=== PATIENT | female | born 1990 | race Caucasian/White ===

== ENCOUNTER 2020-10-07 17:16 | Emergency (ER) | payer OTHER ==
[2020-10-07] MEDS ORDERED: Lidocaine/Epineph/Tetracaine 3 ML Syringe TOP ONE ×2 (17:43→18:09)
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
[2020-10-07] MEDS ORDERED: Bacitracin Oint 1 GM U/D Packet TOP ONE (19:02)
[2020-10-07] MEDS ORDERED: Bacitracin Oint 1 GM U/D Packet ONE (19:28)
--- NOTE | 2020-10-09 09:56 | CR ---
Tibia Fibula Rt CLINICAL HISTORY: Trauma FINDINGS: Two views show no evidence of fracture or bone destruction. No soft tissue abnormality is seen. Impression: No fracture
== END 2020-10-07 19:47 | disposition home or self-care (01) ==
LOC: JP.ED 17:16
DX: S80.811A Abrasion, right lower leg, initial encounter (principal); S50.311A Abrasion of right elbow, initial encounter; V86.99XA Unspecified occupant of other special all-terrain or other off-road motor vehicle injured in nontraffic accident, initial encounter
CPT/HCPCS: 73590; 99284; A9270